=== PATIENT | female | born 1965 | race Asian ===

== ENCOUNTER 2021-01-01 14:58 | Outpatient (CLI) | payer OTHER ==
--- NOTE | 2021-01-02 10:48 | Mammography Report ---
BILATERAL DIGITAL SCREENING MAMMOGRAM 3D/2D: 01/01/2021 CLINICAL: Routine screening. Comparison is made to exams dated: 11/20/2018 mammogram, 11/10/2017 mammogram, 09/14/2016 mammogram, mammogram, and 06/13/2014 mammogram - [facility]. There are scattered fibroglandula r elements in both breasts. There are benign calcifications in both breasts. No significant masses, calcifications, or other findings are seen in either breast. There has been no significant interval change. IMPRESSION: BENIGN There is no mammographic evidence of malignancy. A 1 year screening mammogram is recommended. This exam was interpreted at Station ID: [id number]. NOTE: For mammograms, a report in lay terms will be sent to the patient. Approximately 15% of breast malignancies will not be visualized mammographically. In the management of a palpable breast mass, a negative mammogram must not discourage biopsy of a clinically suspicious lesion. Electronically Signed By: Michael tate/yumiko:01/01/2021 15:58:15 ACR BI-RADS Category 2: Benign Finding(s) 3342F PARENCHYMAL PATTERN: (A) - The breast(s) demonstrate(s) scattered fibroglandular densities. BI-RADS CATEGORY: (2) - 2 RECOMMENDATION: (ANNUAL) - Recommend routine annual screening mammography. [id number] 1 year screening LATERALITY: (B)
== END 2021-01-01 14:59 | disposition home or self-care (01) ==
LOC: DI.N 14:58
DX: Z12.31 Encounter for screening mammogram for malignant neoplasm of breast (principal)

== ENCOUNTER 2021-01-23 09:15 | Outpatient (CLI) | payer OTHER | END 2021-01-23 09:16 | disposition home or self-care (01) | LOC: DI 09:15 | PROVIDERS: ATTEND Family Medicine | DX: R01.1 Cardiac murmur, unspecified (principal) | CPT/HCPCS: 93306 ==

== ENCOUNTER 2021-11-11 14:21 | Outpatient (CLI) | payer OTHER ==
--- NOTE | 2021-11-11 16:35 | MRI Report ---
PROCEDURE: Shoulder RT W/O INDICATIONS: RIGHT SHOULDER ADHESIVE CAPSULITIS TECHNIQUE: Noncontrast oblique coronal T2 fast spin echo with fat saturation, oblique sagittal T1 spin echo and T2 fast spin echo with fat saturation, axial T1 spin echo and T2 fast spin echo with fat saturation t hrough the shoulder. COMPARISON: None. Findings: Supraspinatus: Mild tendinopathy with small full-thickness tear, measuring approximately 6.3 mm (601- 12). Infraspinatus: Mild tendinopathy with interstitial tear. Subscapularis: Mild tendinopathy with interstitial tear. Teres minor: No evidence of tear. Labrum: No evidence of tear. Biceps tendon: No evidence of subluxation or tear. Acromioclavicular joint: Normal alignment. Muscle: Grade 1/2 supraspinatus atrophy. Bones: No significant abnormality. Specifically, no evidence of fracture, contusion, or necrosis. Miscellaneous: Small to moderate joint effusion which involves the superior subscapular recess. Intermediate signal within the superior border of the subscapularis tendon with thickening of the cor acohumeral ligament, concerning for adhesive capsulitis. Small amount of subacromial/subdeltoid bursal fluid. No intra-articular bodies. Intact coracoclavicular ligament. IMPRESSION: 1. Mild supraspinatus tendinopathy with full-thickness tear. 2. Mild infraspinatus and subscapular tendinopathy with interstitial tears. 3. Grade 1/2 supraspinatus atrophy. 4. Small to moderate joint effusion which extends into the superior subscapular recess. 5. Intermediate signal in the superior border of the subscapularis with thickening of the coracohumer al ligament, concerning for adhesive capsulitis. 6. Small amount of fluid in the subacromial/subdeltoid bursa, which may reflect bursitis versus joint fluid. Reviewed by: Duane Canchola MD on 11/11/2021 4:34 PM PDT Approved by: Duane Canchola MD on 11/11/2021 4:34 PM PDT Station ID: [id number]
== END 2021-11-11 14:22 | disposition home or self-care (01) ==
LOC: DI 14:21
PROVIDERS: ATTEND Family Medicine
DX: M75.121 Complete rotator cuff tear or rupture of right shoulder, not specified as traumatic (principal); M25.411 Effusion, right shoulder; M75.01 Adhesive capsulitis of right shoulder

== ENCOUNTER 2023-07-29 09:14 | Outpatient (CLI) | payer OTHER | END 2023-07-29 09:15 | disposition home or self-care (01) | LOC: SC 09:14 | PROVIDERS: ATTEND Nurse Practitioner Family | DX: G47.33 Obstructive sleep apnea (adult) (pediatric) (principal); R09.02 Hypoxemia; E66.3 Overweight; Z68.29 Body mass index [BMI] 29.0-29.9, adult | CPT/HCPCS: 95806 ==

== ENCOUNTER 2023-08-23 13:47 | Outpatient (CLI) | payer OTHER ==
--- NOTE | 2023-08-23 14:46 | Sleep Patient Instructions ---
Sleep Center Visit Summary - Patient Visit Information Reason for Visit: Sleep study followup - Patient Instructions Instructions Attached: CPAP Additional Instructions: You are being started on CPAP therapy with pressure setting at 4-15 cmH2O. You will need to call the sleep care office to set up your follow up once you have your APAP machine and we will schedule a visit to check compliance and response to therapy at that time. You may call the office with any concerns about pressure feeling too low or too much for adjustment, if needed. You should contact DME supplier for any questions or concerns about mask or equipment. Please call office to schedule a follow up appointment in the sleep care office one month after obtaining new device. - Clinic Information Contact: [facility] [address] [place] [address] [email or web address] T: [phone]
--- NOTE | 2023-08-23 14:48 | SLEEP CARE CONSULTATION ---
Information from patient questionnaire entered by Kassie Bates. I have reviewed and concur with the information entered by Kassie Bates. This document represents the service I personally performed and the decisions made by , Karlene Gandara ARNP. History of Present Illness Service Date and Time: 08/23/2023 1347 Initial [place] Sleepiness Scale score: 11 (05/31/23) Current [place] Sleepiness Scale score: 12 (08/23/23) Additional HPI information: CIRA ERIC returns for follow up and results of the recently performed home sleep study. The sleep study showed moderate obstructive sleep apnea with an average AHI of 16 and jocy oxygen saturation of 82%. I explained the pathophysiology behind obstructive sleep apnea. We then spent quite a bit of time discussing different treatment options. For mild obstructive sleep apnea, surgery and oral appliance are alternatives to nasal CPAP therapy but in moderate or severe cases, nasal CPAP is the most effective and reliable treatment. I reviewed the impact of weight changes on sleep apnea and strongly recommended losing weight. After some discussion, the patient opted to go with the nasal CPAP therapy. Nasal autoCPAP set at 4-15 cmH20 will be ordered with rationale explained. A manual titration study will be ordered if unable to find optimal pressure with office adjustments. I explained how CPAP machine works and what to expect when using the machine. Using CPAP every night in order to get used to it was emphasized. Patient advised to put CPAP mask on before getting into bed so as not to fall asleep without CPAP. To assist acclimation to CPAP use, it could a lso be used for a short time during day while reading or watching TV. The patient was instructed to call the CPAP supplier to discuss any mechanical problem that may occur. If the mask given is uncomfortable or is difficult to keep on through the night even with adjustment, contact the CPAP supplier as many will replace with another mask style if notified before 30 days. If snoring or perceives is not getting enough air or too much air from the machine, notify this office. Patient does not drink alcohol. Patient was cautioned about risks of drowsy driving until sleepiness symptoms resolve. Patient denies drowsy driving. Sleep Study - Results Type of Sleep Study: Home sleep study (COMPLETED 07/29/23) Prior sleep studies: No Polysomnography/Home Sleep Study results: Physician Impression: The quality of the study is good. The length of the study is adequate (> 240 minutes). Please also see the tabulated and graphic data. 1. Obstructive Sleep Apnea-Hypopnea (ICD-10 G47.33), moderate, with an AHI of 16.0/hr and jocy SaO2 of 82%. During the study, the patient had 23 apneas (23 obstructive, 0 central, 0 mixed) and 90 hypopneas. The longest episode lasted 119.0 seconds. The respiratory events occurred more frequently during non-supine sleep (supine AHI was 15.6 and non-supine, 34.48). 2. Hypoxemia (ICD-10 R09.02), mild, with the lowest oxygen saturation of 82 % and 3.1 minutes with SaO2 under 90%. Baseline oxygen saturation was normal (Average oxygen saturation was 94%). Allergies and Home Medications Known drug allergies: Yes (as listed) Drug allergies reviewed: Yes Home medication list reviewed: Yes (no changes) Allergy and home medication list: Allergies cephalexin monohydrate * [From Keflex] Allergy (Verified 06/21/23 13:12) Rash clindamycin Allergy (Verified 06/21/23 13:12) Rash Review of Systems Review of systems same as previous: Yes (NO CHANGE) Physical Exam Vital signs obtained and entered by: KASSIE Macias MA Blood Pressure: 130/79 (RIGHT ARM) Cuff size: regular Heart Rate: 98 O2 Saturation: 77 Height: 5 ft Weight: 152 lb 6.4 oz Body Mass Index: 29.7 BMI Classification: Overweight Impression and Plan 1. Obstructive Sleep Apnea-Hypopnea Syndrome, moderate, with lowest oxygen saturation of 82%. Obviously this is the cause of the patients symptoms of unrefreshed sleep, and excessive daytime sleepiness. Positive pressure therapy could benefit hypertension and arrhythmia. As mentioned above, the patient will be started on nasal autoCPAP therapy with pressure set at 4-15 cmH2O. Compliance guidelines also reviewed. A copy of compliance guidelines will be given for reference at check out. 2. Hypoxemia, mild, with a jocy oxygen saturation of 82% and 3.1 minutes spent under 90%. The baseline oxygen saturation was normal with an average oxygen saturation of 94%. 3. Overweight, unspecified. Currently patients BMI is 29.7. Obesity increases the risk of apnea, CPAP pressure requirements and overall health risks especially cardiovascular and diabetes. Thus patient is advised to lose weight. * Nasal auto CPAP therapy, pressure at 4-15 cm H2O. * Attempt to lose weight. * Avoid alcohol consumption near bedtime. * Avoid supine sleep until using CPAP. * The patient is again cautioned about driving until sleepiness completely resolves. * Return one month after CPAP obtained. I will assess response to therapy and compliance at that time. Counseling Topics: Weight loss health impact Prescriptions: Auto CPAP Plan: f/u compliance visit Visit Type: In Office Time Spent with Patient (minutes): 20 Provider Statement: I spent 100% of the Face to Face Visit with the patient with greater than 50% spent counseling the patient and coordination of care.
[2023-08-23 14:56] VITALS: BP 130/79; O2SAT 77
== END 2023-08-23 13:48 | disposition home or self-care (01) ==
LOC: SC 13:47
PROVIDERS: ATTEND Nurse Practitioner Family
DX: G47.33 Obstructive sleep apnea (adult) (pediatric) (principal); R09.02 Hypoxemia; E66.3 Overweight; Z68.29 Body mass index [BMI] 29.0-29.9, adult
CPT/HCPCS: 99212; 99213

== ENCOUNTER 2024-03-27 15:31 | Outpatient (CLI) | payer OTHER ==
--- NOTE | 2024-03-27 16:01 | Sleep Patient Instructions ---
Sleep Center Visit Summary - Patient Visit Information Reason for Visit: First compliance with CPAP therapy - Patient Instructions Additional Instructions: You were here for follow up of CPAP therapy. You will be continued on CPAP therapy with pressure at 4-6 cmH2O. Please let us know if the pressure change is uncomfortable and we can make further adjustments of the pressure. You should follow up with sleep care in 1-2 months. You may contact us sooner for any questions or concerns. - Clinic Information Contact: [facility] [address] [place] [id number] [email or web address] T: [phone]
--- NOTE | 2024-03-27 16:08 | SLEEP CARE CONSULTATION ---
Information from patient questionnaire entered by Kassie Bates. I have reviewed and concur with the information entered by Kassie Bates. This document represents the service I personally performed and the decisions made by , Karlene Gandara ARNP. History of Present Illness Service Date and Time: 03/27/2024 1531 Previous diagnosis: Moderate, Obstructive Sleep Apnea-Hypopnea Syndrome AHI: 16 (on 07/29/2023) Reason for follow up: first compliance Equipment type: CPAP (RESMED Airsense 11, S/U 11/18/23) Equipment obtained from: Other ([facility]) Mask style: Full face Last cushion change: 4 months Prior sleep studies: No Type of Sleep Study: Home sleep study (COMPLETED 07/29/23) HPI additional information: CIRA ERIC was diagnosed to have moderate, AHI 16, obstructive sleep apnea- hypopnea syndrome and returned today for CPAP therapy first compliance follow- up. Sleep Study - Results Type of Sleep Study: Home sleep study (COMPLETED 07/29/23) Prior sleep studies: No CPAP Compliance Data - Data Reviewed with Patient Average duration of nightly device use: 4 HRS 12 MINS Compliance rate %: 17 (02/21/24-03/21/24; 06/20 days used) Current pressure setting (cmH2O): 4-7 Average residual AHI: 1.6 Central apnea: 0.6 Obstructive apnea: 0.5 Hypopnea: 0.5 Average large leak: 0 L/min Subjective Missed days of use due to: reports: family emergency, travel Patient concerns: reports: mask discomfort, air blowing in eyes, other (HEADACHE, BLOATED). denies: aerophagia, mask leak noise, condensation in mask/hose, nasal congestion, dry mouth, nose, throat, epistaxis Observed to snore while using device: No Current pressure setting perceived as: too high On therapy, patient: reports: sleeping better, awakening more refreshed, being more awake and alert during the day, more rested overall. denies: drowsiness while driving Initial [place] Sleepiness Scale score: 11 (05/31/23) Current [place] Sleepiness Scale score: 13 (03/27/24) Allergies and Home Medications Known drug allergies: Yes (as listed) Drug allergies reviewed: Yes Home medication list reviewed: Yes (no changes) Allergy and home medication list: Allergies cephalexin monohydrate * [From Keflex] Allergy (Verified 03/27/24 15:34) Rash clindamycin Allergy (Verified 03/27/24 15:34) Rash Review of Systems Review of systems same as previous: Yes (no changes) Physical Exam Vital signs obtained and entered by: KASSIE Macias MA Blood Pressure: 142/89 (RIGHT ARM) Cuff size: regular Heart Rate: 78 O2 Saturation: 99 Height: 5 ft Weight: 154 lb Body Mass Index: 30.0 BMI Classification: Obese Impression and Plan 1. Obstructive Sleep Apnea-Hypopnea Syndrome, moderate, with poor treatment compliance and good apnea control. On CPAP therapy, the patient has better sleep quality and is more rested overall. She has had trouble with using her fullface mask because it makes her feel like she is suffocating and the mask. She would like try the Mccray FX Maryann nasal pillows mask with ear loops. She still continues to get some headaches and a little aerophagia when using the CPAP. To reduce symptoms of aerophagia, the CPAP pressure will be reduced to 4-6 cmH2O. Patient advised to contact me if this does not reduce symptoms or if pressure change uncomfortable. Patient's apnea severity and rationale for treatment to reduce apnea, improve sleep quality and reduce cardiovascular and cerebrovascular events was reviewed. I also reviewed the benefit of consistent device use of CPAP for hypertension, arrhythmia. 2. Obesity, unspecified. Currently patients BMI is 30. Obesity increases the risk of apnea, CPAP pressure requirements and overall health risks especially cardiovascular and diabetes. Thus patient is advised to lose weight. * Mask refitting for Mccray FX Maryann nasal pillows mask with ear loops * Change auto CPAP pressure to 4-6 cmH2O * Notify me if snoring with mask or feeling that the pressure is too much or too little * Attempt to lose weight * Call this office if any problems using CPAP * Return for follow up in 1-2 months, or sooner if concerns arise Adjust device pressure to (cmH2O): 4-6 Counseling Topics: Weight loss health impact Prescriptions: Other (mask refitting) Follow up with Sleep Care in: 1-2 months Visit Type: In Office Time Spent with Patient (minutes): 22 Provider Statement: I spent 100% of the Face to Face Visit with the patient with greater than 50% spent counseling the patient and coordination of care.
[2024-03-27 16:15] VITALS: BP 142/89; O2SAT 99
== END 2024-03-27 15:32 | disposition home or self-care (01) ==
LOC: SC 15:31
PROVIDERS: ATTEND Nurse Practitioner Family
DX: G47.33 Obstructive sleep apnea (adult) (pediatric) (principal); E66.9 Obesity, unspecified; Z68.30 Body mass index [BMI] 30.0-30.9, adult
CPT/HCPCS: 99212; 99213

== ENCOUNTER 2024-05-11 13:02 | Outpatient (CLI) | payer OTHER ==
--- NOTE | 2024-05-11 13:25 | Sleep Patient Instructions ---
Sleep Center Visit Summary - Patient Visit Information Reason for Visit: 6-week follow-up for PAP therapy - Patient Instructions Additional Instructions: You were here for follow up of CPAP therapy. You will be continued on CPAP therapy with pressure at 4-6 cmH2O. You should follow up with sleep care in 1-2 months. You may contact us sooner for any questions or concerns. - Clinic Information Contact: [facility] [address] [place] [id number] [email or web address] T: [phone]
--- NOTE | 2024-05-11 13:29 | SLEEP CARE CONSULTATION ---
Information from patient questionnaire entered by Kassie Bates. I have reviewed and concur with the information entered by Kassie Bates. This document represents the service I personally performed and the decisions made by , Karlene Gandara ARNP. History of Present Illness Service Date and Time: 05/11/2024 1302 Previous diagnosis: Moderate, Obstructive Sleep Apnea-Hypopnea Syndrome AHI: 16 (on 07/29/2023) Reason for follow up: other (6 WEEK F/U) Equipment type: CPAP (RESMED Airsense 11, S/U 11/18/23) Equipment obtained from: Other ([facility]) Mask style: Nasal pillows (Mccray FX Maryann with ear loops) Backup mask available: Yes (old mask) Last cushion change: last month Prior sleep studies: No Type of Sleep Study: Home sleep study (COMPLETED 07/29/23) HPI additional information: CIRA ERIC was diagnosed to have moderate, AHI 16, obstructive sleep apnea- hypopnea syndrome and returned today for CPAP therapy six week after pressure change follow-up. Sleep Study - Results Type of Sleep Study: Home sleep study (COMPLETED 07/29/23) Prior sleep studies: No CPAP Compliance Data - Data Reviewed with Patient Average duration of nightly device use: 3 HRS 56 MINS Compliance rate %: 20 (03/26/24-05/08/24; days used) Current pressure setting (cmH2O): 4-6 Average residual AHI: 2.5 Central apnea: 0.7 Obstructive apnea: 1.3 Hypopnea: 0.3 Average large leak: 0.3 L/min Subjective Missed days of use due to: reports: illness (vertigo and headaches), travel Patient concerns: reports: nasal congestion, other (BLOATED). denies: aerophagia, mask discomfort, air blowing in eyes, mask leak noise, condensation in mask/hose, dry mouth, nose, throat, epistaxis Observed to snore while using device: No Current pressure setting perceived as: comfortable On therapy, patient: reports: other (feels she is waking up more when she uses her CPAP). denies: drowsiness while driving Initial [place] Sleepiness Scale score: 11 (05/31/23) Current [place] Sleepiness Scale score: 10 (05/11/24) Allergies and Home Medications Known drug allergies: Yes (as listed) Allergy and home medication list: Allergies cephalexin monohydrate * [From Keflex] Allergy (Verified 05/11/24 13:05) Rash clindamycin Allergy (Verified 05/11/24 13:05) Rash Review of Systems Review of systems same as previous: Yes (NO CHANGE) Physical Exam Vital signs obtained and entered by: KASSIE Macias MA Blood Pressure: 130/83 (RIGHT ARM) Cuff size: long Heart Rate: 91 O2 Saturation: 96 Height: 5 ft Weight: 155 lb 3.2 oz Body Mass Index: 30.3 BMI Classification: Obese Impression and Plan 1. Obstructive Sleep Apnea-Hypopnea Syndrome, moderate, with poor treatment compliance and good apnea control. She has significant improvement of her sleep apnea however her compliance is still low. I encouraged her to put the mask on before she lays down so she does not fall asleep without it. I encouraged her to wear it more often and to take the CPAP when she travels to the [facility] in the next month. Patient's apnea severity and rationale for treatment to reduce apnea, improve sleep quality and reduce cardiovascular and cerebr ovascular events was reviewed. I also reviewed the benefit of consistent device use of CPAP for hypertension, arrhythmia. 2. Obesity, unspecified. Currently patients BMI is 30.3. Obesity increases the risk of apnea, CPAP pressure requirements and overall health risks especially cardiovascular and diabetes. Thus patient is advised to lose weight. * Continue auto CPAP pressure at 4-6 cmH2O * Notify me if snoring with mask or feeling that the pressure is too much or too little * Attempt to lose weight * Call this office if any problems using CPAP * Return for follow up in 1-2 months, or sooner if concerns arise Counseling Topics: Spare mask, Weight loss health impact Follow up with Sleep Care in: 1-2 months Visit Type: In Office Time Spent with Patient (minutes): 20 Provider Statement: I spent 100% of the Face to Face Visit with the patient with greater than 50% spent counseling the patient and coordination of care.
[2024-05-11 13:38] VITALS: BP 130/83; O2SAT 96
== END 2024-05-11 13:03 | disposition home or self-care (01) ==
LOC: SC 13:02
PROVIDERS: ATTEND Nurse Practitioner Family
DX: G47.33 Obstructive sleep apnea (adult) (pediatric) (principal); E66.9 Obesity, unspecified; Z68.30 Body mass index [BMI] 30.0-30.9, adult
CPT/HCPCS: 99212; 99213